=== PATIENT | female | born 1980 | race African-American/Black ===

== ENCOUNTER 2022-01-12 17:16 | Observation (INO) ==
[2022-01-12] MEDS ORDERED: ASPIRIN CHEW 81 MG TABLET PO STA (17:40)
[2022-01-12] MEDS ORDERED: ONDANSETRON 4 MG/2 ML VIAL IV STA (17:40)
[2022-01-12] MEDS ORDERED: MORPHINE 2 MG/1 ML SYRINGE IV STA (17:42)
[2022-01-12 18:46] LABS: Basophils % 0.3 % (0.0-0.8); Eosinophils # 0.3 10*3/uL (0.0-0.87); Eosinophils % 3.2 % (0.00-10.9); Hematocrit 43.1 VOL% (35.7-47.0); Hemoglobin 14.7 GM/DL (12.0-16.0); Immature Granulocytes % 0.2 %; Immature Granulocytes Absolute 0.02 #; Lymphocytes # 2.5 10*3/uL (1.4-4.0); Lymphocytes % 25.4 % (21.3-54.2); Mean Corpuscular HGB Conc 34.1 GM/DL (32-36); Mean Corpuscular Volume 90.9 FL (87-102); Mean Platelet Volume 8.7 FL (9.6-12.0); Monocytes # 0.8 10*3/uL (0.11-0.8); Monocytes % 8.3 % (1.7-12.7); Neutrophils % 62.6 % (38.7-73.9); Platelet Count 254 T/CUMM (130-400); Red Blood Count 4.74 MC/CUMM (3.8-5.5); White Blood Count 9.7 T/CUMM (4-12)
[2022-01-12 19:12] LABS: Albumin 3.4 G/DL (3.4-5.0); Bilirubin,Total 0.5 MG/DL (0.20-1.00); Calcium 8.6 MG/DL (8.5-10.1); Osmolality,Calculated 277.4 MOS/KG (273-304); Potassium 3.3 MMOL/L (3.5-5.1); Total Protein 7.6 G/DL (6.4-8.2)
[2022-01-12] MEDS ORDERED: POTASSIUM CHLORIDE 20 MEQ TABLET PO STA (19:54)
[2022-01-12] MEDS ORDERED: ACETAMINOPHEN 325 MG TABLET PO PRN (19:54)
[2022-01-12] MEDS ORDERED: GLUCAGON 1 MG VIAL IM PRN (19:54)
[2022-01-12] MEDS ORDERED: MORPHINE 2 MG/1 ML SYRINGE IV PRN (19:54)
[2022-01-12] MEDS ORDERED: NICOTINE 21 MG/24 HR PATCH TRANSDERM PRN (19:54)
[2022-01-12] MEDS ORDERED: hydrALAZINE 20 MG/1 ML VIAL IV PRN (19:54)
[2022-01-12] MEDS ORDERED: NITROGLYCERIN SL 0.4 MG TABLET SL PRN (19:54)
[2022-01-12] MEDS ORDERED: ONDANSETRON 4 MG/2 ML VIAL IV PRN (19:54)
[2022-01-12] MEDS ORDERED: DEXTROSE 10% 250 ML BAG IV PRN (20:03)
[2022-01-12] MEDS ORDERED: ALBUTEROL/IPRATROPIUM 3 ML NEB RESP TX PRN (20:03)
[2022-01-13 05:02] LABS: Calcium 9.2 MG/DL (8.5-10.1); Osmolality,Calculated 274.5 MOS/KG (273-304); Potassium 3.8 MMOL/L (3.5-5.1); Risk Ratio 3.58; Thyroid Stimulating Hormone 0.239 uIU/ml (0.358-3.74); VLDL Cholesterol 21.4 MG/DL
[2022-01-13] MEDS ORDERED: PANTOPRAZOLE 40 MG TABLET PO SCH (09:00)
[2022-01-13] MEDS ORDERED: ENOXAPARIN 40 MG/0.4 ML SYRINGE SUBCUT SCH (09:00)
[2022-01-13] MEDS ORDERED: ASPIRIN EC 325 MG TABLET PO SCH (09:00)
[2022-01-13] MEDS ORDERED: carvediloL 6.25 MG TABLET PO ONE (11:58)
[2022-01-13 12:50] VITALS: BP 140/95
== END 2022-01-13 12:40 | disposition home or self-care (01) ==
LOC: N.EDINP 17:16 → N.ED 17:16 → N.TELEN 20:54
PROVIDERS: ADMIT Internal Medicine Geriatric Medicine; ATTEND Internal Medicine Geriatric Medicine

== ENCOUNTER 2022-05-11 10:34 | Inpatient (IN) ==
[2022-05-11] MEDS ORDERED: ASPIRIN 325 MG TABLET PO STA (13:10)
[2022-05-11 13:40] LABS: Basophils # 0.1 10*3/uL (0.0-0.2); Basophils % 0.9 % (0.0-0.8); Eosinophils # 0.1 10*3/uL (0.0-0.87); Eosinophils % 1.4 % (0.00-10.9); Hematocrit 41.1 VOL% (35.7-47.0); Hemoglobin 14.2 GM/DL (12.0-16.0); Immature Granulocytes % 0.4 %; Immature Granulocytes Absolute 0.03 #; Lymphocytes # 3.6 10*3/uL (1.4-4.0); Lymphocytes % 44.5 % (21.3-54.2); Mean Corpuscular HGB Conc 34.5 GM/DL (32-36); Mean Corpuscular Volume 90.9 FL (87-102); Mean Platelet Volume 9.1 FL (9.6-12.0); Monocytes # 0.4 10*3/uL (0.11-0.8); Monocytes % 4.6 % (1.7-12.7); Neutrophils % 48.2 % (38.7-73.9); Platelet Count 281 T/CUMM (130-400); Red Blood Count 4.52 MC/CUMM (3.8-5.5); Red Cell Distribution Width 13.5 % (9.3-17.3); White Blood Count 8.1 T/CUMM (4-12)
[2022-05-11] MEDS: NITROGLYCERIN SL 0.4 MG TABLET SL PRN ×2 (14:23→16:39)
[2022-05-11 14:28] LABS: Calcium 8.7 MG/DL (8.5-10.1); Osmolality,Calculated 281.3 MOS/KG (273-304)
[2022-05-11] MEDS ORDERED: hydrALAZINE 20 MG/1 ML VIAL IV STA (15:12)
[2022-05-11] MEDS ORDERED: FUROSEMIDE 40 MG/4 ML VIAL IV STA (16:03)
[2022-05-11] MEDS ORDERED: cefTRIAXone 1,000 MG in SODIUM CHLORIDE 0.9% 100 ML IV STA (16:28)
[2022-05-11] MEDS ORDERED: AZITHROMYCIN INJ 500 MG in SODIUM CHLORIDE 0.9% 250 ML IV STA (16:29)
[2022-05-11] MEDS ORDERED: NITROGLYCERIN 2% OINT 1 INCH/GM PACK TOP STA (16:53)
[2022-05-11] MEDS ORDERED: ONDANSETRON 4 MG/2 ML VIAL IV PRN (17:33)
[2022-05-11] MEDS ORDERED: GLUCAGON 1 MG VIAL IM PRN (17:33)
[2022-05-11] MEDS ORDERED: hydrALAZINE 20 MG/1 ML VIAL IV PRN (17:33)
[2022-05-11] MEDS ORDERED: DOCUSATE SODIUM 100 MG CAPSULE PO PRN (17:33)
[2022-05-11] MEDS ORDERED: LOSARTAN 25 MG TABLET PO ONE (17:34)
[2022-05-11] MEDS ORDERED: MORPHINE 2 MG/1 ML SYRINGE IV PRN (17:51)
[2022-05-11] MEDS ORDERED: LORazepam 2 MG/1 ML VIAL IV PRN ×2 (17:55→18:00)
[2022-05-11] MEDS ORDERED: DEXTROSE 50% 25 GM/50 ML SYRINGE IV PRN (17:58)
[2022-05-11] MEDS ORDERED: DEXTROSE 10% 250 ML BAG IV PRN (18:00)
[2022-05-11 18:43] LABS: Thyroid Stimulating Hormone 0.463 uIU/ml (0.358-3.74)
[2022-05-11 18:52] LABS: Ferritin 71.9 ng/mL (8-252)
[2022-05-11] MEDS: FOLIC ACID 1 MG TABLET PO SCH (21:00)
[2022-05-11] MEDS: carvediloL 6.25 MG TABLET PO SCH (21:00)
[2022-05-11] MEDS: THIAMINE 100 MG TABLET PO SCH (21:00)
[2022-05-11] MEDS: ATORVASTATIN 40 MG TABLET PO SCH (21:00)
[2022-05-11] MEDS: ENOXAPARIN 40 MG/0.4 ML SYRINGE SUBCUT SCH (21:01)
[2022-05-12 06:50] LABS: Basophils % 0.6 % (0.0-0.8); Eosinophils # 0.1 10*3/uL (0.0-0.87); Eosinophils % 1.8 % (0.00-10.9); Immature Granulocytes % 0.3 %; Immature Granulocytes Absolute 0.02 #; Lymphocytes # 2.6 10*3/uL (1.4-4.0); Lymphocytes % 36.4 % (21.3-54.2); Mean Corpuscular HGB Conc 33.3 GM/DL (32-36); Mean Corpuscular Volume 90.9 FL (87-102); Mean Platelet Volume 8.9 FL (9.6-12.0); Monocytes # 0.5 10*3/uL (0.11-0.8); Monocytes % 6.7 % (1.7-12.7); Neutrophils % 54.2 % (38.7-73.9); Platelet Count 275 T/CUMM (130-400); Red Blood Count 4.62 MC/CUMM (3.8-5.5); Red Cell Distribution Width 13.6 % (9.3-17.3); White Blood Count 7.1 T/CUMM (4-12)
[2022-05-12 07:12] LABS: Calcium 8.5 MG/DL (8.5-10.1); Osmolality,Calculated 280.3 MOS/KG (273-304); Potassium 3.6 MMOL/L (3.5-5.1); Risk Ratio 4.55
[2022-05-12] MEDS ORDERED: LOSARTAN 50 MG TABLET PO SCH (09:00)
[2022-05-12] MEDS: ASPIRIN CHEW 81 MG TABLET PO SCH (09:05)
[2022-05-12] MEDS: FUROSEMIDE 40 MG/4 ML VIAL IV SCH ×2 (09:05→16:35)
[2022-05-12] MEDS: MULTIVITAMIN (CENTRUM) TABLET PO SCH (09:06)
[2022-05-12] MEDS: cefTRIAXone 1,000 MG in SODIUM CHLORIDE 0.9% 100 ML IV SCH (09:06)
[2022-05-12] MEDS: carvediloL 6.25 MG TABLET PO SCH ×2 (09:06→21:12)
[2022-05-12] MEDS: PANTOPRAZOLE 40 MG TABLET PO SCH (09:06)
[2022-05-12] MEDS: AZITHROMYCIN INJ 500 MG in SODIUM CHLORIDE 0.9% 250 ML IV SCH (10:20)
[2022-05-12] MEDS: THIAMINE 100 MG TABLET PO SCH ×2 (12:00→21:12)
[2022-05-12 14:34] LABS: Barbiturates Screen,Urine Negative (Negative); Benzodiazepines Screen,Urine Negative (Negative); Cannabinoid Screen,Urine Negative (Negative); Opiate Screen,Urine Negative (Negative); Phencyclidine Screen,Urine Negative (Negative)
[2022-05-12] MEDS: ATORVASTATIN 40 MG TABLET PO SCH (21:11)
[2022-05-12] MEDS: ENOXAPARIN 40 MG/0.4 ML SYRINGE SUBCUT SCH (21:12)
[2022-05-12] MEDS: FOLIC ACID 1 MG TABLET PO SCH (21:12)
[2022-05-12] MEDS: MELATONIN 3 MG TABLET PO PRN (23:20)
[2022-05-13 08:44] LABS: Calcium 8.4 MG/DL (8.5-10.1); Osmolality,Calculated 283.1 MOS/KG (273-304); Potassium 3.4 MMOL/L (3.5-5.1)
[2022-05-13] MEDS: THIAMINE 100 MG TABLET PO SCH ×2 (10:20→21:11)
[2022-05-13] MEDS: ASPIRIN CHEW 81 MG TABLET PO SCH (10:20)
[2022-05-13] MEDS: POTASSIUM CHLORIDE 20 MEQ TABLET PO PRN ×3 (10:20→14:20)
[2022-05-13] MEDS: MULTIVITAMIN (CENTRUM) TABLET PO SCH (10:21)
[2022-05-13] MEDS: carvediloL 6.25 MG TABLET PO SCH ×2 (10:21→21:11)
[2022-05-13] MEDS: PANTOPRAZOLE 40 MG TABLET PO SCH (10:21)
[2022-05-13] MEDS: FUROSEMIDE 40 MG/4 ML VIAL IV SCH ×2 (10:22→14:59)
[2022-05-13] MEDS: cefTRIAXone 1,000 MG in SODIUM CHLORIDE 0.9% 100 ML IV SCH (10:22)
[2022-05-13] MEDS: AZITHROMYCIN INJ 500 MG in SODIUM CHLORIDE 0.9% 250 ML IV SCH (10:23)
[2022-05-13] MEDS: ATORVASTATIN 40 MG TABLET PO SCH (21:11)
[2022-05-13] MEDS: MELATONIN 3 MG TABLET PO PRN (21:11)
[2022-05-13] MEDS: FOLIC ACID 1 MG TABLET PO SCH (21:11)
[2022-05-13] MEDS: ENOXAPARIN 40 MG/0.4 ML SYRINGE SUBCUT SCH (21:12)
[2022-05-14 05:43] LABS: Basophils # 0.1 10*3/uL (0.0-0.2); Basophils % 0.9 % (0.0-0.8); Eosinophils # 0.2 10*3/uL (0.0-0.87); Eosinophils % 2.8 % (0.00-10.9); Hematocrit 43.2 VOL% (35.7-47.0); Hemoglobin 14.1 GM/DL (12.0-16.0); Immature Granulocytes % 0.2 %; Immature Granulocytes Absolute 0.01 #; Lymphocytes # 3.4 10*3/uL (1.4-4.0); Mean Corpuscular HGB Conc 32.6 GM/DL (32-36); Mean Corpuscular Volume 93.3 FL (87-102); Monocytes # 0.6 10*3/uL (0.11-0.8); Monocytes % 9.3 % (1.7-12.7); Neutrophils % 33.8 % (38.7-73.9); Platelet Count 293 T/CUMM (130-400); Red Blood Count 4.63 MC/CUMM (3.8-5.5); Red Cell Distribution Width 13.8 % (9.3-17.3); White Blood Count 6.5 T/CUMM (4-12)
[2022-05-14 06:04] LABS: Eosinophils 2 % (0-10); Lymphocytes 58 % (20-55); Total Cells Counted 100
[2022-05-14 06:05] LABS: Microcytosis Slight; Ovalocytes Slight; Platelet Estimate Normal
[2022-05-14 06:06] LABS: Atypical Lymphocytes Few
[2022-05-14 06:09] LABS: Calcium 9.2 MG/DL (8.5-10.1); Osmolality,Calculated 284.1 MOS/KG (273-304)
[2022-05-14] MEDS ORDERED: DAPAGLIFLOZIN 10 MG TABLET PO SCH (09:00)
[2022-05-14] MEDS: ASPIRIN CHEW 81 MG TABLET PO SCH (09:06)
[2022-05-14] MEDS: cefTRIAXone 1,000 MG in SODIUM CHLORIDE 0.9% 100 ML IV SCH (09:06)
[2022-05-14] MEDS: PANTOPRAZOLE 40 MG TABLET PO SCH (09:07)
[2022-05-14] MEDS: MULTIVITAMIN (CENTRUM) TABLET PO SCH (09:07)
[2022-05-14] MEDS: THIAMINE 100 MG TABLET PO SCH (09:07)
[2022-05-14] MEDS: carvediloL 6.25 MG TABLET PO SCH (09:07)
[2022-05-14] MEDS: FUROSEMIDE 40 MG/4 ML VIAL IV SCH (09:07)
[2022-05-14 12:25] VITALS: BP 109/73
== END 2022-05-14 12:50 | disposition home or self-care (01) | DRG 194 ==
LOC: N.ED 10:34 → N.EDINP 17:33 → N.TELEN 05-12 16:05
PROVIDERS: ADMIT Hospitalist; ATTEND Hospitalist